=== PATIENT | male | born 1995 | race Caucasian/White ===

== ENCOUNTER 2016-11-02 15:31 | Emergency (ER) | payer BC ==
[~2016-11-02] VITALS: Ht 180.3 cm; Wt 85.7 kg
[2016-11-02 17:36] LABS: BASOPHIL % 0.6 % (0-2); PLATELET COUNT 193 x10^3mcL (130-400); RED CELL DISTRIBUTION WIDTH 14.4 % (11.5-14.5)
[2016-11-02 17:45] LABS: CALCIUM 9.1 mg/dL (8.5-10.1); CARBON DIOXIDE 31.8 mmol/L (21-32); CHLORIDE SERUM 104 mmol/L (98-107); CREATININE SERUM 0.8 mg/dL (0.7-1.3); GFR1 > 60 mL/min; GLUCOSE SERUM 95 mg/dL (74-106); POTASSIUM SERUM 3.9 mmol/L (3.5-5.1); SODIUM SERUM 141 mmol/L (136-145)
[2016-11-02 17:50] LABS: ALBUMIN 4.2 g/dL (3.4-5.0); ALKALINE PHOSPHATASE 50 U/L (46-116); ALT/SGPT 27 U/L (16-63); AST/SGOT 22 U/L (15-37); BILIRUBIN TOTAL 0.59 mg/dL (0.20-1.00); TOTAL PROTEIN, SERUM 7.7 g/dL (6.4-8.2)
[2016-11-02 19:35] VITALS: BP 132/84
== END 2016-11-02 19:35 | disposition home or self-care (01) ==
LOC: ED 15:31
PROVIDERS: Specialist
DX: J20.9 Acute bronchitis, unspecified (principal)
CPT/HCPCS: 83880

== ENCOUNTER 2016-11-08 20:45 | Emergency (ER) | payer BC ==
[2016-11-09 00:33] VITALS: BP 129/63
== END 2016-11-09 00:33 | disposition home or self-care (01) ==
LOC: ED 20:45
DX: F12.10 Cannabis abuse, uncomplicated (principal)
CPT/HCPCS: 82962

== ENCOUNTER 2016-11-21 21:13 | Emergency (ER) | payer BC ==
[2016-11-21 22:33] LABS: BASOPHIL % 0.6 % (0-2); PLATELET COUNT 183 x10^3mcL (130-400); RED CELL DISTRIBUTION WIDTH 14.3 % (11.5-14.5)
[2016-11-21 22:49] LABS: CALCIUM 9.2 mg/dL (8.5-10.1); CARBON DIOXIDE 29.2 mmol/L (21-32); CHLORIDE SERUM 106 mmol/L (98-107); CREATININE SERUM 0.8 mg/dL (0.7-1.3); GFR1 > 60 mL/min; GLUCOSE SERUM 90 mg/dL (74-106); POTASSIUM SERUM 3.9 mmol/L (3.5-5.1); SODIUM SERUM 143 mmol/L (136-145)
[2016-11-21 22:54] LABS: ALBUMIN 4.3 g/dL (3.4-5.0); ALKALINE PHOSPHATASE 61 U/L (46-116); ALT/SGPT 28 U/L (16-63); AST/SGOT 22 U/L (15-37); BILIRUBIN TOTAL 0.53 mg/dL (0.20-1.00); TOTAL PROTEIN, SERUM 7.7 g/dL (6.4-8.2)
[2016-11-22 01:41] VITALS: BP 120/90
== END 2016-11-22 01:41 | disposition home or self-care (01) ==
LOC: ED 21:13
PROVIDERS: Emergency Medicine
DX: M54.5 Low back pain (principal); Z79.899 Other long term (current) drug therapy
CPT/HCPCS: J1885

== ENCOUNTER 2016-11-22 23:51 | Emergency (ER) | payer BC ==
[2016-11-23 02:47] VITALS: BP 130/85
== END 2016-11-23 02:47 | disposition home or self-care (01) ==
LOC: ED 23:51
DX: S30.21XA Contusion of penis, initial encounter (principal); F12.10 Cannabis abuse, uncomplicated; X58.XXXA Exposure to other specified factors, initial encounter; Y93.89 Activity, other specified; Y92.89 Other specified places as the place of occurrence of the external cause; Y99.8 Other external cause status